=== PATIENT | female | born 1965 | race Caucasian/White ===

== ENCOUNTER → 2016-10-10 | Outpatient (CLI) | payer OTHER ==
--- NOTE | 2016-10-10 09:50 | KCIC ---
Bilateral digital screening mammograms with CAD: HISTORY Routine screening. COMPARISON Comparison is made to previous studies dated 09/24/2015 and 09/22/2014. FINDINGS Breast density category C. The skin and nipples show no abnormalities. No abnormal lymph nodes are seen in the axilla. The breast parenchyma shows heterogeneous density. There appears to be a nodular density developing inferiorly in the right breast probably in the 8 o'clock B position. There also appears to be some architectural distortion laterally in the left breast on CC view probably around the 230 B position. Recommend further evaluation bilaterally with coned compression views and ultrasound. There are no other dominant masses, suspicious calcifications or architectural distortions. Benign appearing calcifications are present. IMPRESSION Nodular appearing density in the inferior right breast probably around the 8 o'clock B position. Possible architectural distortion in the left breast probably around the 230 B position. Recommend further evaluation with additional coned compression views and ultrasound. This study was interpreted with the benefit of Computerized Aided Detection (CAD). Mammography is not 100% sensitive in detecting breast cancer. Therefore, a self breast exam and a clinical breast exam are very important. A negative mammogram does not negate a clinically suspicious finding and should not result in a delay in biopsying a clinically suspicious abnormality. BI-RADS category 0: Incomplete. Additional imaging is recommended. This patient's information has been entered into a reminder system for the patient to be notified with the results of this examination and a target date for her next mammograms. Electronically signed by: Meredith Nichols MD (Oct 10, 2016 09:48:58)
== END | disposition home or self-care (01) ==
LOC: KCIC MAMMO 08:02
PROVIDERS: ATTEND Obstetrics & Gynecology
DX: Z12.31 Encounter for screening mammogram for malignant neoplasm of breast (principal)
CPT/HCPCS: G0202; 77067

== ENCOUNTER → 2016-10-27 | Outpatient (CLI) | payer OTHER ==
--- NOTE | 2016-10-27 09:47 | KCIC ---
PROCEDURE Left foot, three views. HISTORY Chronic left foot. COMPARISON None. FINDINGS There is mild metatarsus primus varus. Mild disc space narrowing 1st MTP. Soft tissue thickening medial to the 1st metatarsal. Bony irregularity of the medial 1st metatarsal head. No definite bony erosion is seen. 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 No dorsal soft tissue swelling. No acute fracture. Mineralization is normal. IMPRESSION No acute fracture. Electronically signed by: Demond Robbins MD (Oct 27, 2016 09:46:18)
== END | disposition home or self-care (01) ==
LOC: KCIC 09:10
PROVIDERS: ATTEND Physician Assistant
DX: M79.672 Pain in left foot (principal); G89.29 Other chronic pain
CPT/HCPCS: 73630

== ENCOUNTER → 2016-11-06 | Outpatient (CLI) | payer OTHER ==
--- NOTE | 2016-11-06 09:25 | RAD ---
DATE: 11/06/2016 EXAM: DIGITAL DIAGNOSTIC BILATERAL, BREAST BILATERAL HISTORY: Suspicious screening study COMPARISON: 10/10/2016 09/22/2014 This study was interpreted with the benefit of Computerized Aided Detection (CAD). FINDINGS: Additional spot compression views of both breasts were obtained in the areas of concern described on the screening study. Heterogeneous fibroglandular shadows are identified similar to those seen on previous studies. No discrete mass is identified. Bilateral breast ultrasound, 11/06/2016: Targeted ultrasound examinations centered in the right breast at the 8:00 location and in the left breast at the 2:30 location was performed performed. Heterogeneous fibroglandular shadows are present bilaterally. No cystic or solid breast lesion is seen. IMPRESSION: 1. Additional mammograms of the areas of concern described on the screening study show no abnormality. 2. Targeted bilateral ultrasound examinations also show no abnormality. 3. Routine yearly mammographic surveillance is suggested. BI-RADS CATEGORY: 2 BENIGN FINDING(S) RECOMMENDED FOLLOW-UP: 12M 12 MONTH FOLLOW-UP PQRS compliance statement: Patient information was entered into a reminder system with a target due date for the next mammogram. Mammography is a sensitive method for finding small breast cancers, but it does not detect them all and is not a substitute for careful clinical examination. A negative mammogram does not negate a clinically suspicious finding and should not result in delay in biopsying a clinically suspicious abnormality. "Our facility is accredited by the [employer] Mammography [employer]."
== END | disposition home or self-care (01) ==
LOC: KCIC MAMMO 08:16
PROVIDERS: ATTEND Obstetrics & Gynecology
DX: R92.8 Other abnormal and inconclusive findings on diagnostic imaging of breast (principal)
CPT/HCPCS: 76641; G0204; 77066

== ENCOUNTER → 2017-11-20 | Outpatient (CLI) | payer OTHER | END | disposition home or self-care (01) | LOC: KCIC MAMMO 11:26 | DX: Z12.31 Encounter for screening mammogram for malignant neoplasm of breast (principal) | CPT/HCPCS: 77067 ==

== ENCOUNTER → 2018-11-29 | Outpatient (CLI) | payer OTHER ==
[2017-05-17 16:03] VITALS: BP 129/75
[~2018-11-29] MED LIST: ONDA4TAB10 SL
--- NOTE | 2018-11-30 09:49 | KCIC ---
Bilateral digital screening mammograms: Reason for examination: Routine screening. Comparison is made to previous studies dated 11/20/2017 and 10/10/2016. Interpretation was made with the benefit of CAD. The skin and nipples show no abnormalities. No abnormal axillary lymph nodes are seen. The breast parenchyma shows scattered fibroglandular density. (Breast density: Category B.) There is a new nodular parenchymal density posterior superiorly in the left breast seen only on oblique view approximately 1.5 cm anterior to the pectoralis muscle measuring approximately 9 mm in size. Recommend further evaluation with additional coned compression views in CC and exaggerated CC projections and with ultrasound. There continues to be calcifying nodule 8:00 B position of the left breast consistent with a degenerating fibroadenoma. There are no other dominant masses, suspicious calcifications or architectural distortions. Impression: 9 mm nodular density posterior superiorly in the left breast seen on oblique view only. Recommend further evaluation with additional cone compression views and ultrasound. BI-RADS Category 0: Incomplete. Needs additional imaging evaluation. "Our facility is accredited by the [employer] Mammography [employer]." This patient's information has been entered into a reminder system for the patient to be notified with the results of her examination and a target date for the next mammogram. Electronically signed by: Carol Nichols MD (11/29/2018 5:42 PM) [id number]
== END | disposition home or self-care (01) ==
LOC: KCIC MAMMO 16:20
PROVIDERS: ATTEND Family Medicine
DX: Z12.31 Encounter for screening mammogram for malignant neoplasm of breast (principal); N63.24 Unspecified lump in the left breast, lower inner quadrant
CPT/HCPCS: 77067

== ENCOUNTER → 2018-12-10 | Outpatient (CLI) | payer OTHER ==
[2017-05-17 16:03] VITALS: BP 129/75
--- NOTE | 2018-12-10 11:07 | KCIC ---
LEFT DIAGNOSTIC MAMMOGRAPHY AND BREAST ULTRASOUND History: Abnormal screening mammogram. Comparison: Bilateral mammogram 11/29/2018 and 11/20/2017. Technique: XCCL and spot compression MLO and CC digital mammogram views were obtained. Findings: Breast Tissue Density B : There are scattered areas of fibroglandular density. Technologist noted that the skin was red in the area of interest near the axilla, a marker was placed. The marker corresponds to the asymmetry on the MLO. On the XCCL and spot compression CC, the nodular asymmetry is noted to be subdermal. Real-time ultrasound imaging of the left breast is performed. In the upper outer left breast 18 cm from the nipple, there is a lentiform hypoechoic mass measuring 11 x 4 x 8 mm that is subdermal and abuts the dermis. Mass does not appear cystic but may be complicated. Definite punctum is not seen. Patient notes she has expressed fluid from the area. There is no abnormal left axillary lymph node. IMPRESSION: 1. Nodular asymmetry in the axillary tail is noted to be subdermal in location. On ultrasound, there is a lentiform hypoechoic mass that is most likely a complicated or inflamed sebaceous cyst. 2. Recommend clinical follow-up. No imaging follow-up is necessarily required unless the finding does not resolve. If the finding resolves recommend routine mammogram screening. If finding does not resolve a repeat ultrasound could be performed. BI-RADS category 2: Benign findings. The images were reviewed with computer-aided detection. Patient information is entered into the reminder system with a target due date for the next screening mammogram. Mammography is the most sensitive method for finding small breast cancers, but it does not detect them all and is not a substitute for careful clinical examination. A negative mammogram does not negate a clinically suspicious finding and should not result in delay in biopsying a clinically suspicious abnormality. "Our facility is accredited by the [employer] Mammography [employer]." Electronically signed by: Demond Robbins MD (12/10/2018 11:04 AM) [id number]
== END | disposition home or self-care (01) ==
LOC: KCIC MAMMO 08:39
PROVIDERS: ATTEND Family Medicine
DX: N64.89 Other specified disorders of breast (principal)
CPT/HCPCS: 76641; 77065

== ENCOUNTER → 2019-05-18 | Outpatient (CLI) | payer OTHER ==
[2017-05-17 16:03] VITALS: BP 129/75
--- NOTE | 2019-05-18 16:26 | KCIC ---
EXAM: CHEST 2 VIEWS. HISTORY: Bronchitis, productive cough. COMPARISON: None. FINDINGS: Frontal and lateral views of the chest are obtained. There is a mild infiltrate in the right base consistent with pneumonia. There is no pneumothorax or pleural effusion. The heart is not enlarged. There are atherosclerotic calcifications of the aorta. IMPRESSION: 1. Mild right basilar pneumonia. Follow-up to resolution is recommended. Electronically signed by: Charanjit Collazo MD (05/18/2019 4:23 PM) [facility]
== END | disposition home or self-care (01) ==
LOC: KCIC 12:04
PROVIDERS: ATTEND Family Medicine
DX: J18.8 Other pneumonia, unspecified organism (principal); R91.8 Other nonspecific abnormal finding of lung field; I70.0 Atherosclerosis of aorta; J20.9 Acute bronchitis, unspecified
CPT/HCPCS: 71046

== ENCOUNTER → 2019-12-21 | Outpatient (CLI) | payer OTHER ==
[2017-05-17 16:03] VITALS: BP 129/75
--- NOTE | 2019-12-21 18:30 | KCIC ---
Bilateral digital screening mammograms: Reason for examination: Routine screening. Comparison is made to previous studies dated back to 11/06/2016. Interpretation was made with the benefit of CAD. The skin and nipples show no abnormalities. No abnormal axillary lymph nodes are seen. The breast parenchyma shows scattered fibroglandular density. 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 There continues to be a small nodular parenchymal density in the lower inner quadrant of the right breast which is unchanged and probably represents a small fibroadenoma. There is however possible nodule developing superiorly in the left breast on oblique view only probably in the upper outer quadrant at the 2:00 B position. Recommend further evaluation with coned compression views in CC and lateral projections and with ultrasound. IMPRESSION: New nodular density in the left breast superiorly on oblique view probably at the 2:00 B position. Recommend further evaluation with coned compression views and ultrasound. BI-RADS Category 0: Incomplete: Need additional imaging evaluation. "Our facility is accredited by the [employer] Mammography [employer]." This patient's information has been entered into a reminder system for the patient to be notified with the results of her examination and a target date for the next mammogram. Electronically signed by: Carol Nichols MD (12/21/2019 6:27 PM) [email or web address]
== END | disposition home or self-care (01) ==
LOC: KCIC MAMMO 15:11
PROVIDERS: ATTEND Family Medicine
DX: Z12.31 Encounter for screening mammogram for malignant neoplasm of breast (principal)
CPT/HCPCS: 77067

== ENCOUNTER → 2020-01-24 | Outpatient (CLI) | payer OTHER ==
[2017-05-17 16:03] VITALS: BP 129/75
--- NOTE | 2020-01-24 10:58 | KCIC ---
Left digital diagnostic mammogram Reason for examination: Workup of left upper outer breast nodular asymmetry Comparison is made to previous study dated screening mammogram December 21, 2019 and priors CC and ML spot compression digital views obtained. Interpretation was made with the benefit of CAD. The skin and nipples show no abnormalities. No abnormal lymph nodes are seen. The breast parenchyma is scattered fibroglandular elements. (Breast density: Category B.) There are no suspicious masses, suspicious calcifications or architectural distortions. The left upper outer breast questioned nodular asymmetry does not persist on spot compression CC or ML mammograms consistent with summation density artifact of overlapping glandular tissue. Impression: Negative left mammogram as described above. Recommend routine screening. BI-RADS Category 1: Negative. "Our facility is accredited by the [employer] Mammography [employer]." This patient's information has been entered into a reminder system for the patient to be notified with the results of her examination and a target date for the next mammogram. Electronically signed by: Artur Young MD (01/24/2020 10:55 AM) [email or web address]
== END | disposition home or self-care (01) ==
LOC: KCIC MAMMO 09:45
PROVIDERS: ATTEND Family Medicine
DX: R92.2 Inconclusive mammogram (principal)
CPT/HCPCS: 77065

== ENCOUNTER → 2021-02-01 | Outpatient (CLI) | payer OTHER ==
[2017-05-17 16:03] VITALS: BP 129/75
--- NOTE | 2021-02-01 13:43 | KCIC ---
Bilateral digital screening mammograms: Reason for examination: Routine screening. Comparison is made to previous studies dated back to 09/22/2014. Interpretation was made with the benefit of CAD. The skin and nipples show no abnormalities. No abnormal axillary lymph nodes are seen. The breast par enchyma shows scattered fibroglandular density. (Breast density: Category B.) There continues to be a nodule with coarse calcification consistent with a degenerated fibroadenoma in the 7:30 B position o f the left breast. There continues to be a small nodule 4:00 B position of the right breast which is unchanged. There are no new dominant masses, suspicious calcifications or architectural distortions. Some benign calcifications are present. Impression: No evidence of malignancy. Recommend routine screening. BI-RADS category 2: Benign "Our facility is accredited by the [employer] Mammography [employer]." This patient's information has been entered into a reminder system for the patient to be notified wit h the results of her examination and a target date for the next mammogram. Electronically signed by: Carol Nichols MD (02/01/2021 1:41 PM) [email or web address]
== END ==
LOC: KCIC MAMMO 07:47
PROVIDERS: ATTEND Family Medicine
DX: Z12.31 Encounter for screening mammogram for malignant neoplasm of breast (principal)
CPT/HCPCS: 77067